=== PATIENT | male | born 1980 | race Hispanic/Latino ===

== ENCOUNTER → 2019-07-11 | Day surgery (SDC) | payer OTHER ==
--- NOTE | 2019-07-08 11:09 | RAD REPORT ---
EXAM DESCRIPTION: Rosaura Adamson (2 Views)07/08/2019 10:55 am CLINICAL HISTORY: Preop for mass removal from head COMPARISON: None FINDINGS: The lungs appear clear of acute infiltrate. The heart is normal size IMPRESSION: No acute abnormalities displayed
[~2019-07-11] MED LIST: CEFAZOLIN/SWI 1gm 1 GM/10 ML SYR ONE; FENTANYL CITR 100 MCG/2 ML ONE; HYDROCODONE/APAP 7.5/325 MG TAB ONE; KETOROLAC 30 MG/ML INJ ONE; LIDOCAINE 2% MPF 5 ML VIAL ONE; MIDAZOLAM HCL 2 MG/2 ML INJ ONE; ONDANSETRON 4 MG/2 ML VIAL ONE; Ringers Lactate 1,000 ML IV ONE; propofoL 200 MG/20 ML VIAL IV ONE
[2019-07-11 10:02] LABS: Basophils % 0.8 % (0-1.3); Hematocrit 50.2 % (39.6-49.0); Lymphocytes % 41.6 % (15.3-44.8); MPV 9.7 fL (7.6-11.3); RBC Red Blood Cell Count 5.75 M/uL (4.33-5.43)
[2019-07-11 12:27] VITALS: BP 138/65; TEMP 97.2; O2SAT 97
--- NOTE | 2019-07-11 15:36 | EKG ---
Test Date: 2019-07-08 Test Time: 10:31:20 Multimedia Teacher: DAWIT MEASUREMENT RESULTS: Intervals: Rate: 78 CO: 164 QRSD: 84 QT: 354 QTc: 403 [place]on: P: 47 CO: 164 QRS: -16 T: 44 INTERPRETIVE STATEMENTS: Normal sinus rhythm Normal ECG Compared to ECG 12/24/2004 09:51:00 Sinus bradycardia no longer present Electronically Signed On 07-11-19 15:35:09 SEED CORE OPERATOR by Angel Son
--- NOTE | 2019-07-12 00:28 | OP ---
Date of Procedure: 07/11/2019 Surgeon: Kristofer Contreras MD Preoperative Diagnosis: Tender forehead mass. Postoperative Diagnosis: Tender forehead mass. Procedure: Excisional biopsy of tender forehead mass. Anesthesia: General plus local. Findings: Patient has mass that goes calcified. This mass gets attached to the part of the bone. I t has some calcification attached to fibroid area. We have to get this right of bone on the fontal r egion. The specimen was sent for biopsy. Indications: This is the case of a 39-year-old patient, comes to us with a forehead mass. He denies any trauma. Denies any previously having this before. Comes to us and is getting tender. The bene fits, alternatives, and risks of excisional biopsy of forehead mass fully explained to the patient, w hich include, but are not limited to infection, bleeding, damage to adjacent structures, anesthesia c omplication, nonhealing wound, CO, and even . He also understands this may not relieve any symp toms, he might need more than one surgical intervention. He understood, signed a consent. The area of concern was marked by me and the patient in the holding room. Description Of Procedure: Patient was brought to the operating room, placed in supine position. Ane sthesia was done without complication. Forehead area was prepped and draped in a sterile fashion. A n incision was made over the area. Incision was carried down to deep subcutaneous tissue unless we n oticed a component of subcu and bone component. Both were marked together. In order for us to be ab le to get the bone component, we even had to have rongeur just to get that piece of calcification con nected to the subcutaneous tissue and sent that for biopsy. The mass was excised. The bone was also sent as a bone biopsy. Area was irrigated. No other masses palpated. Then, we closed the area wit h 3-0 chromic after irrigation and hemostasis and covered with a pressure sterile dressings. Patient tolerated the procedure well. Patient was sent t o recovery in stable condition. TOMMY/TRISTIN Voice ID: [id number] Report ID: [id number]
--- NOTE | 2019-07-12 00:43 | DS ---
Diagnosis: Forehead subcutaneous/bone mass. Postoperative Diagnosis: Forehead subcutaneous/bone mass. Procedure: Excisional biopsy of forehead mass. Disposition: Home. Activity: As tolerated. No heavy lifting. Followup: Follow up in my office in 1 week. Call for appointment [phone]. It is ideal if he keep the pressure dressing for the next until he see me back in my office, but if he has to remove it, the n he can remove that in 2 days and then replace it once again. Medications: Include hydrocodone q.4 hours p.r.n. pain. TOMMY/TRISTIN Voice ID: [id number] Report ID: [id number]
== END | disposition home or self-care (01) ==
LOC: OR 09:04
PROVIDERS: ATTEND Surgery
PROC: 0JB10ZZ Excision of Face Subcutaneous Tissue and Fascia, Open Approach (ICD-10-PCS; principal; 2019-07-11 11:00)
DX: R22.0 Localized swelling, mass and lump, head (principal)
CPT/HCPCS: 93005; 85025; 36415; 88305; 71046; 11442; J2704; J2250; J3010; J0690; J7120; J2405

== ENCOUNTER 2020-05-19 16:54 | Inpatient (IN) | payer OTHER ==
[2020-05-19] MEDS ORDERED: NA CHLORIDE 0.9% 1,000 ML ONE (17:43)
[2020-05-19] MEDS ORDERED: dexAMETHasone 4 MG/ML VIAL ONE (17:43)
[2020-05-19] MEDS ORDERED: NA CHLORIDE 0.9% 250 ML ONE (17:43)
[2020-05-19] MEDS ORDERED: AZITHROMYCIN 500 MG INJ IVPB ONE (17:43)
--- NOTE | 2020-05-19 18:11 | RAD REPORT ---
EXAM DESCRIPTION: Rosaura Single View05/19/2020 5:45 pm CLINICAL HISTORY: cough COMPARISON: 2019 FINDINGS: The lungs appear clear of acute infiltrate. The heart is normal size IMPRESSION: No acute abnormalities displayed
[2020-05-19 18:18] LABS: BUN Blood Urea Nitrogen 9 mg/dL (7-18); Bicarbonate 28 mmol/L (21-32); Glucose Level 101 mg/dL (74-106); Potassium 3.1 mmol/L (3.5-5.1); Sodium Level 136 mmol/L (136-145)
[2020-05-19 18:20] LABS: Absolute Lymphocytes (CBC) 1.2 K/uL (0.7-4.9); Basophils % 0.2 % (0-1.3); Hematocrit 43.3 % (39.6-49.0); Lymphocytes % 23.6 % (15.3-44.8); MPV 8.5 fL (7.6-11.3); RBC Red Blood Cell Count 5.07 M/uL (4.33-5.43)
[2020-05-19] MEDS ORDERED: KCL 20 MEQ/100 mL IVPB 20 MEQ/100 ML BAG IV ONE (18:40)
[2020-05-19] MEDS ORDERED: NS KCL 20MEQ 1,000 ML IV ONE (18:40)
--- NOTE | 2020-05-19 19:25 | RAD REPORT ---
EXAM DESCRIPTION: CT - Chest For Pe Angio - 05/19/2020 7:09 pm CLINICAL HISTORY: sob TECHNIQUE: Dynamically enhanced axial 3 mm thick images of the chest were obtained during administra tion of <100> mL Isovue 370 IV contrast. Coronal and oblique reconstruction images were generated and reviewed. Exam utilizes a protocol for optimal evaluation of pulmonary arterial tree. Maximum intensity projections 3D imaging was utilized All CT scans are performed using dose optimization technique as appropriate and may include automated exposure control or mA/KV adjustment according to patient size. FINDINGS: A pulmonary embolus is not seen. A thoracic aortic aneurysm is not noted. A pleural effusion is not seen. A pericardial effusion is not seen. Mild bilateral ground-glass opacities. Mild right lower lobe consolidation IMPRESSION: Negative for a pulmonary embolism. Mild bilateral ground-glass opacities with mild right lower lobe consolidation may indicate Covid pne umonia
--- NOTE | 2020-05-19 20:33 | ER ---
Nurse's Notes [facility] Name: Ivan Elliott Age: 40 yrs Sex: Male : 1980 Arrival Date: 05/19/2020 Time: 16:56 Bed 18 Private MD: Diagnosis: Coronavirus infection, unspecified;Hypoxia Presentation: 05/19 17:13 Chief complaint: Patient states: tested positive for COVID on Thursday at [facility], symptoms started 10 days ago, has not been eating, home Spo2 has been running 83-87 and he feels very weak and has chest congestion. Coronavirus screen: Client presents with at least one sign or symptom that may indicate coronavirus-19. Standard/surgical mask placed on the client. Provider contacted for isolation considerations. Client reports previous positive COVID test result. Date of collection: May 14, 2020. Ebola Screen: Patient negative for fever greater than or equal to 101.5 degrees Fahrenheit, and additional compatible Ebola Virus Disease symptoms Patient denies exposure to infectious person. Patient denies travel to an Ebola-affected area in the 21 days before illness onset. No symptoms or risks identified at this time. Initial Sepsis Screen: Does the patient meet any 2 criteria? No. Patient's initial sepsis screen is negative. Does the patient have a suspected source of infection? No. Patient's initial sepsis screen is negative. Risk Assessment: Do you want to hurt yourself or someone else? Patient reports no desire to harm self or others. Onset of symptoms was May 11, 2020. 17:13 Method Of Arrival: Wheelchair iw 17:13 Acuity: AJ 3 iw Historical: - Allergies: 17:16 No Known Allergies; iw - Home Meds: 17:16 Bromfed DM 2-30-10 mg/5 mL oral syrp 10 mL every 4 hours [Active]; Tessalon Perles 100 iw mg Oral cap 1 cap 3 times per day [Active]; - PMHx: 17:16 None; iw - PSHx: 17:16 left pectoralis repair; iw - Immunization history:: Adult Immunizations. - Social history:: Smoking status: Patient denies any tobacco usage or history of. Screenin:01 Abuse screen: Denies threats or abuse. Denies injuries from another. Nutritional hb screening: No deficits noted. Tuberculosis screening: No symptoms or risk factors identified. Fall Risk None identified. Assessment: 18:01 General: Appears in no apparent distress. ill, Behavior is calm, cooperative. Pain: hb Pain currently is 2 out of 10 on a pain scale. Neuro: Level of Consciousness is awake, alert, obeys commands, Oriented to person, place, time, situation. Cardiovascular: Capillary refill < 3 seconds Patient's skin is warm and dry. Respiratory: Reports shortness of breath at rest cough that is non-productive, Respiratory effort is even, unlabored, Respiratory pattern is regular, symmetrical. GI: No signs and/or symptoms were reported involving the gastrointestinal system. : No signs and/or symptoms were reported regarding the genitourinary system. EENT: No signs and/or symptoms were reported regarding the EENT system. Derm: Skin is pink, warm \T\ dry. Musculoskeletal: No signs and/or symptoms reported regarding the musculoskeletal system. 19:10 General: Appears in no apparent distress. Behavior is calm, cooperative, appropriate wh for age. Pain: Denies pain. Neuro: Level of Consciousness is awake, alert, obeys commands, Oriented to person, place, time, situation, Appropriate for age. Cardiovascular: Heart tones S1 S2. Respiratory: Airway is patent Respiratory effort is even, unlabored, Respiratory pattern is regular, symmetrical, Breath sounds are diminished. Respiratory: Reports shortness of breath at rest on exertion cough that is. GI: Abdomen is flat, non-distended. : No signs and/or symptoms were reported regarding the genitourinary system. EENT: No signs and/or symptoms were reported regarding the EENT system. Derm: Skin is intact, is healthy with good turgor, Skin is pink, warm \T\ dry. normal. Musculoskeletal: Circulation, motion, and sensation intact. 20:25 Reassessment: Patient appears in no apparent distress at this time. No changes from previously documented assessment. Patient and/or family updated on plan of care and expected duration. Pain level reassessed. Patient is alert, oriented x 3, equal unlabored respirations, skin warm/dry/pink. Pt was walked through the [address] with O2 sat monitor per Provider instruction. Pt O2 sats fell to as low as 83% while walking. Pt was brought back to bed and placed on supplemental O2. 21:45 Reassessment: Patient appears in no apparent distress at this time. Patient and/or wh family updated on plan of care and expected duration. Pain level reassessed. Patient is alert, oriented x 3, equal unlabored respirations, skin warm/dry/pink. Pt accessing his Covid result per [facility] chart notified charge nurse. 22:45 Reassessment: Patient appears in no apparent distress at this time. Patient and/or wh family updated on plan of care and expected duration. Pain level reassessed. Patient is alert, oriented x 3, equal unlabored respirations, skin warm/dry/pink. Pt was unable to procure Covid result, declining another Covid test, notified Charge Nurse and Data Security Coordinator told us he just needs to sign an affidavit informing that he is Covid Positive and that he understands he will be placed in the Covid unit. Vital Signs: 17:13 BP 108 / 83; Pulse 94; Resp 16; Temp 97.7; Pulse Ox 96% on R/A; Weight 102.06 kg; iw Height 5 ft. 10 in. (177.80 cm); 18:01 BP 111 / 74; Pulse 89; Resp 17; Pulse Ox 97% on 2 lpm NC; Pain 2/10; hb 19:15 BP 112 / 65; Pulse 89; Resp 18; Pulse Ox 94% on R/A; wh 20:29 BP 107 / 58; Pulse 91; Resp 18; Pulse Ox 93% on 2 lpm NC; wh 21:45 BP 106 / 78; Pulse 95; Resp 18; Pulse Ox 91% on R/A; wh 22:46 BP 112 / 67; Pulse 88; Resp 18; Pulse Ox 95% on 2 lpm NC; wh 17:13 Body Mass Index 32.28 (102.06 kg, 177.80 cm) iw ED Course: 16:56 Patient arrived in ED. ds1 17:15 Triage completed. iw 17:16 Arm band placed on. iw 17:19 Madonna Ellison FNP-C is PHCP. kb 17:19 Gatito Shelton MD is Attending Physician. kb 17:26 Sabine Huitron, JOSE is Primary Nurse. hb 17:46 Chest Single View XRAY In Process Unspecified. EDMS 17:48 Initial lab(s) drawn, by me, sent to lab. First set of blood cultures drawn by me. dh3 Inserted saline lock: 20 gauge in left antecubital area, using aseptic technique. Blood collected. 17:50 Second set of blood cultures drawn by in. [facility] 18:01 Patient has correct armband on for positive identification. Bed in low position. Call light in reach. Side rails up X 1. 18:50 PHCP role handed off by Madonna Ellison FNP-C [facility] 18:50 Nilo Ayon PA is PHCP. [facility] 19:09 CT Chest For PE Angio In Process Unspecified. EDMS 20:31 Enrique Meadows is Hospitalizing Provider. [facility] 23:11 No provider procedures requiring assistance completed. Patient admitted, IV remains in place. Administered Medications: 18:05 Drug: Decadron - Dexamethasone 10 mg Route: IVP; Site: right antecubital; hb 18:25 Follow up: Response: No adverse reaction hb 22:48 Follow up: Response: No adverse reaction 18:06 Drug: NS 0.9% 1000 ml Route: IV; Rate: 1000 ml; Site: right antecubital; hb 22:47 Follow up: Response: No adverse reaction; IV Status: Completed infusion 18:06 Drug: Zithromax 500 mg Route: IVPB; Infused Over: 1 hrs; Site: right antecubital; hb 22:47 Follow up: Response: No adverse reaction; IV Status: Completed infusion 18:43 Drug: NS 0.9% with KCl 40 mEq/L 1000 ml Route: IV; Rate: 125 ml/hr; Site: right hb antecubital; 22:47 Follow up: Response: No adverse reaction; IV Status: Infusion continued upon admission Outcome: 20:32 Decision to Hospitalize by Provider. [facility] 23:11 Admitted to ICU accompanied by nurse, family with patient, via wheelchair, room 3, with oxygen, with chart, Report called to Ansley Montes RN 23:11 Condition: stable 23:11 Instructed on the need for admit. 23:32 Patient left the ED. rv Signatures: Dispatcher [employer] EDMS Madonna Ellison FNP-C FNP-Ckb Mickail, Joel, PA PA [facility] Jada Camara ds1 Ana Meier RN RN Sabine Huitron RN RN Anita Arellano 3 Habalo, Wyatt Hamilton, RN RN rv
--- NOTE | 2020-05-19 20:33 | EDPHYS ---
Physician Documentation [facility] Name: Ivan Elliott Age: 40 yrs Sex: Male : 1980 Arrival Date: 05/19/2020 Time: 16:56 Bed 18 Private MD: ED Physician Gatito Shelton HPI: 05/19 17:54 This 40 yrs old Male presents to ER via Wheelchair with complaints of Covid + kb Shortness of Breath, Weakness. 17:54 The patient or guardian reports cough, that is intermittent, described as moderate, kb with no sputum, difficulty breathing, flu symptoms, low-grade fever, myalgias, no appetite. Onset: The symptoms/episode began/occurred 10 day(s) ago. Severity of symptoms: At their worst the symptoms were moderate, in the emergency department the symptoms are unchanged. Modifying factors: The symptoms are alleviated by nothing, the symptoms are aggravated by nothing. Associated signs and symptoms: Pertinent positives: fever, Pertinent negatives: chest pain, diarrhea, ear ache, nausea, rhinorrhea, sore throat, vomiting. The patient has not experienced similar symptoms in the past. The patient has been recently seen by a physician:. reports pt has been sick for 10 days. Tested positive for COVID on Thursday. Came in today because shortness of breath is getting worse, pt hasn't been eating for days, weakness and low O2 sats. States oxygen sat at home was 83-87% today which prompted a visit to ER. Historical: - Allergies: 17:16 No Known Allergies; iw - Home Meds: 17:16 Bromfed DM 2-30-10 mg/5 mL oral syrp 10 mL every 4 hours [Active]; Tessalon Perles 100 iw mg Oral cap 1 cap 3 times per day [Active]; - PMHx: 17:16 None; iw - PSHx: 17:16 left pectoralis repair; iw - Immunization history:: Adult Immunizations. - Social history:: Smoking status: Patient denies any tobacco usage or history of. ROS: 17:53 Cardiovascular: Negative for chest pain, palpitations, and edema, Abdomen/GI: Negative kb for abdominal pain, nausea, vomiting, diarrhea, and constipation, Back: Negative for injury and pain, MS/Extremity: Negative for injury and deformity, Skin: Negative for injury, rash, and discoloration. 17:53 Constitutional: Positive for body aches, chills, fatigue, fever, malaise, poor PO intake. 17:53 Respiratory: Positive for cough, dyspnea on exertion, shortness of breath, Negative for hemoptysis, orthopnea, pleurisy, wheezing. 17:53 Neuro: Positive for headache. Exam: 17:53 Constitutional: This is a well developed, well nourished patient who is awake, alert, kb and in no acute distress. Head/Face: Normocephalic, atraumatic. Chest/axilla: Normal chest wall appearance and motion. Nontender with no deformity. No lesions are appreciated. Cardiovascular: Regular rate and rhythm with a normal S1 and S2. No gallops, murmurs, or rubs. Normal PMI, no JVD. No pulse deficits. Abdomen/GI: Soft, non-tender, with normal bowel sounds. No distension or tympany. No guarding or rebound. No evidence of tenderness throughout. Skin: Warm, dry with normal turgor. Normal color with no rashes, no lesions, and no evidence of cellulitis. MS/ Extremity: Pulses equal, no cyanosis. Neurovascular intact. Full, normal range of motion. Neuro: Awake and alert, GCS 15, oriented to person, place, time, and situation. Cranial nerves II-XII grossly intact. Motor strength 5/5 in all extremities. Sensory grossly intact. Cerebellar exam normal. Normal gait. 17:53 Respiratory: the patient does not display signs of respiratory distress, Respirations: normal, Breath sounds: rhonchi, that are mild, are located in both bases. Vital Signs: 17:13 BP 108 / 83; Pulse 94; Resp 16; Temp 97.7; Pulse Ox 96% on R/A; Weight 102.06 kg; iw Height 5 ft. 10 in. (177.80 cm); 18:01 BP 111 / 74; Pulse 89; Resp 17; Pulse Ox 97% on 2 lpm NC; Pain 2/10; hb 19:15 BP 112 / 65; Pulse 89; Resp 18; Pulse Ox 94% on R/A; wh 20:29 BP 107 / 58; Pulse 91; Resp 18; Pulse Ox 93% on 2 lpm NC; wh 21:45 BP 106 / 78; Pulse 95; Resp 18; Pulse Ox 91% on R/A; wh 22:46 BP 112 / 67; Pulse 88; Resp 18; Pulse Ox 95% on 2 lpm NC; wh 17:13 Body Mass Index 32.28 (102.06 kg, 177.80 cm) iw MDM: 17:19 Patient medically screened. 17:40 Data reviewed: vital signs, nurses notes. Data interpreted: Pulse oximetry: on room air kb is 96 %. Interpretation: normal. 18:53 Transition of care: After a detail discussion of the patient's case, care is kb transferred to Nilo SCHMITT. 20:30 ED course: I discussed the patient with Dr. Meadows whom accepted admission. . [facility] 05/19 17:20 Order name: CBC with Diff; Complete Time: 18:22 05/19 17:20 Order name: Basic Metabolic Panel; Complete Time: 18:22 05/19 17:20 Order name: D-Dimer; Complete Time: 18:11 kb 05/19 17:26 Order name: Blood Culture Adult (2) 05/19 17:26 Order name: Lactate 05/19 17:26 Order name: Procalcitonin; Complete Time: 18:37 05/19 17:20 Order name: Chest Single View XRAY; Complete Time: 18:22 05/19 17:27 Order name: Blood Culture [facility] 05/19 17:27 Order name: Lactate; Complete Time: 18:22 [facility] 05/19 18:09 Order name: CT Chest For PE Angio; Complete Time: 19:27 05/19 20:28 Order name: CRP; Complete Time: 21:00 [facility] 05/19 17:20 Order name: IV Start; Complete Time: 17:57 kb 05/19 19:52 Order name: Misc. Order: walking o2; Complete Time: 20:23 [facility] 05/19 21:18 Order name: CONS Physician Consult EDOH Administered Medications: 18:05 Drug: Decadron - Dexamethasone 10 mg Route: IVP; Site: right antecubital; hb 18:25 Follow up: Response: No adverse reaction hb 22:48 Follow up: Response: No adverse reaction 18:06 Drug: NS 0.9% 1000 ml Route: IV; Rate: 1000 ml; Site: right antecubital; hb 22:47 Follow up: Response: No adverse reaction; IV Status: Completed infusion 18:06 Drug: Zithromax 500 mg Route: IVPB; Infused Over: 1 hrs; Site: right antecubital; hb 22:47 Follow up: Response: No adverse reaction; IV Status: Completed infusion 18:43 Drug: NS 0.9% with KCl 40 mEq/L 1000 ml Route: IV; Rate: 125 ml/hr; Site: right hb antecubital; 22:47 Follow up: Response: No adverse reaction; IV Status: Infusion continued upon admission Disposition: 05/19/20 20:32 Hospitalization ordered by Enrique Meadows for Observation. Preliminary diagnosis are Coronavirus infection, unspecified, Hypoxia. - Bed requested for Intensive Care Unit. - Status is Observation. rv - Condition is Stable. - Problem is new. - Symptoms are unchanged. Addendum: 05/21/2020 08:55 Co-signature as Attending Physician, Gatito Shelton MD I agree with the assessment and c roque plan of care. Signatures: Dispatcher [employer] EDMadonna Guerrero, ALFREDO-C FREEZING MACHINE OPERATOR-Ruthie Momin, RN Gatito Goldberg MD MD cha Mickail, Joel, PA PA Ana Cox RN RN Sabine Huitron RN Wyatt Chambers RN JOSE Danny Arnold Corrections: (The following items were deleted from the chart) 05/19 22:56 20:32 Hospitalization Ordered by Enrique Meadows for Observation. Preliminary diagnosis dw is Coronavirus infection, unspecified; Hypoxia. Bed requested for Telemetry/MedSurg (observation). Status is Observation. Condition is Stable. Problem is new. Symptoms are unchanged. [facility] 23:32 22:56 05/19/2020 20:32 Hospitalization Ordered by Enrique Meadows for Observation. rv Preliminary diagnosis is Coronavirus infection, unspecified; Hypoxia. Bed requested for Intensive Care Unit. Status is Observation. Condition is Stable. Problem is new. Symptoms are unchanged. dw
--- NOTE | 2020-05-19 22:21 | P.HP ---
Certification for Inpatient Patient admitted to: Observation With expected LOS: <2 Midnights Practitioner: I am a practitioner with admitting privileges, knowledge of patient current condition, hospital course, and medical plan of care. Services: Services provided to patient in accordance with Admission requirements found in Title 42 Section 412.3 of the Code of Federal Regulations Patient History Date of Service: 05/19/20 Reason for admission: Shortness of breath History of Present Illness: 40-year-old gentleman with no known past medical history presented emergency department with a complaint of progressive shortness of breath of 4 days duration. The patient tested positive for COVID 19 about 4 days ago. He also reports nonproductive cough. His D-dimer was elevated. CTA thorax done showed bilateral ground-glass opacity. Patient desaturates on room air with exertion. He is diagnosed with COVID pneumonia with hypoxia and placed under observation for further management. Allergies No Known Allergies Allergy (Verified 07/08/19 10:26) Home Medications: NK [No Home Meds] 07/08/19 - Past Medical/Surgical History -: None -: None - Family History Family History: Reviewed- Non-Contributory - Social History Smoking Status: Never smoker Alcohol use: No CD- Drugs: No Review of Systems Other: Patient denies any fever or chest pain. Except as documented, all other systems reviewed and negative. Physical Examination - Physical Exam General: Alert, In no apparent distress, Oriented x3 HEENT: Mucous membr. moist/pink, Sclerae nonicteric Neck: Supple, JVD not distended Respiratory: Clear to auscultation bilaterally, Normal air movement Cardiovascular: No edema, Regular rate/rhythm, Normal S1 S2 Gastrointestinal: Soft and benign, Non-distended, No tenderness Musculoskeletal: No swelling, No erythema Integumentary: No rashes, No cyanosis Neurological: Normal strength at 5/5 x4 extr, Cranial nerves 3-12 intact - Studies Laboratory Data (last 24 hrs) 05/19/20 17:48: Sodium 136, Potassium 3.1 L, BUN 9, Creatinine 0.89, Glucose 101 05/19/20 17:48: WBC 5.0, Hgb 15.3, Hct 43.3, Plt Count 195 Assessment and Plan - Problems (Diagnosis) (1) Pneumonia due to COVID-19 virus Current Visit: Yes Status: Acute (2) Acute respiratory failure with hypoxia Current Visit: Yes Status: Acute - Plan Place under observation. Start oral dexamethasone. Supplementation with zinc, vitamin-C and vitamin-D. Supplemental oxygen. Evaluate for home oxygen and possible discharge in a.m. if condition does not worsen. - Advance Directives Does patient have a Living Will: No Does patient have a Durable POA for Healthcare: No
[2020-05-20] MEDS ORDERED: ACETAMINOPHEN 500 MG TAB PO PRN (01:12)
[2020-05-20] MEDS ORDERED: ONDANSETRON 4 MG/2 ML VIAL IV PRN (01:12)
[2020-05-20 01:27] VITALS: BMI 31.2
[2020-05-20 06:13] LABS: Absolute Lymphocytes (CBC) 0.6 K/uL (0.7-4.9); Basophils % 0.2 % (0-1.3); Hematocrit 40.4 % (39.6-49.0); Lymphocytes % 24.2 % (15.3-44.8); MPV 8.5 fL (7.6-11.3); RBC Red Blood Cell Count 4.73 M/uL (4.33-5.43)
[2020-05-20 06:43] LABS: BUN Blood Urea Nitrogen 8 mg/dL (7-18); Bicarbonate 27 mmol/L (21-32); Glucose Level 153 mg/dL (74-106); Magnesium 2.6 mg/dL (1.8-2.4); Phosphorus 2.5 mg/dL (2.5-4.9); Potassium 3.7 mmol/L (3.5-5.1); Sodium Level 140 mmol/L (136-145)
[2020-05-20] MEDS ORDERED: [UNRECOGNIZED DRUG - OTHER] PO SCH (06:45)
[2020-05-20] MEDS: dexAMETHasone 4 MG TAB PO SCH ×2 (08:14→16:57)
[2020-05-20] MEDS: VITAMIN D 1000 UNIT TAB PO SCH (08:14)
[2020-05-20] MEDS: ZINC SULFATE 220 MG CAP PO SCH (08:14)
[2020-05-20] MEDS: BENZONATATE 100 MG CAP PO SCH ×3 (08:15→20:23)
[2020-05-20] MEDS: ASCORBIC ACID 500 MG TABLET PO SCH ×2 (08:15→20:23)
[2020-05-20] MEDS ORDERED: POTASSIUM CL SA 10 MEQ TAB PO ONE (09:00)
[2020-05-20] MEDS ORDERED: POTASS/SODIUM PHOSPHATE 1 PKT POWD.PACK PO ONE (09:00)
[2020-05-20] MEDS ORDERED: ENOXAPARIN 40 MG/0.4 ML SQ SCH (09:00)
[2020-05-20] MEDS ORDERED: INFLUENZA VACCINE (for 3y+) 0.5 ML DOSE IMVAC ONE (10:00)
--- NOTE | 2020-05-20 14:55 | P.PN ---
Subjective Date of Service: 05/20/20 Chief Complaint: Shortness of breath Subjective: No new changes (Patient's O2 saturation continues to drop. He will stay an additional day for home O2.) Physical Examination - Vital Signs Temperature: 96.4 F Blood Pressure: 132/82 Pulse: 94 Respirations: 22 Pulse Ox (%): 92 - Physical Exam General: Cooperative, Mild distress HEENT: Atraumatic, Normocephalic, EOMI Respiratory: Diminished, Crackles/rales Cardiovascular: No edema, Normal pulses, Regular rate/rhythm, Normal S1 S2 Gastrointestinal: Normal bowel sounds, Soft and benign, Non-distended, No tenderness Musculoskeletal: No clubbing, No swelling, No contractures, No erythema, No tenderness, No warmth Neurological: Normal speech, Sensation intact, Normal affect - Studies Laboratory Data (last 24 hrs) 05/19/20 17:48: Sodium 136, Potassium 3.1 L, BUN 9, Creatinine 0.89, Glucose 101 05/19/20 17:48: WBC 5.0, Hgb 15.3, Hct 43.3, Plt Count 195 Assessment & Plan - Problems (Diagnosis) (1) Acute respiratory failure with hypoxia Current Visit: Yes Status: Acute (2) Pneumonia due to COVID-19 virus Current Visit: Yes Status: Acute Physician Review Additional Text: Assessment Patient is a 40 year old male without chrnic co-morbidities currently admitted with acute hypoxia secondary to COVID 19 PNA. He is on dexamethasone, multi-vitamins and zinc supplements. His O2 saturation continues to drop. He will most likely need home O2. Acute hypoxia COVID 19 PNA PLAN: Change admission status from observation to inpatient Continue supplemental O2 via nasal cannula SW/CM consulted to arrange for home O2. Continue dexamethasone, vitamin B1, C, D and zinc Appreciate recommendations from Pulmonology
[2020-05-20] MEDS ORDERED: ASPIRIN 325 MG TAB PO ONE (20:04)
--- NOTE | 2020-05-20 20:04 | P.CNS ---
Date of Consult: 05/20/20 Reason for Consult: Pneumonia due to stiles virus Chief Complaint: Shortness of breath History of Present Illness: Patient is 40 years of age admitted with progressive dyspnea he was tested positive for stiles virus reports a nonproductive cough he has bilateral opacities Allergies No Known Allergies Allergy (Verified 05/20/20 01:29) Home Medications: Benzonatate [Tessalon Perle*] 100 mg PO TID 05/20/20 Brompheniramine/Pseudoephed/Dm [Riokztpg-Sxz-Au 2-30-10 mg/5Ml] 10 ml PO Q4H 05/20/20 - Past Medical/Surgical History Diabetic: No -: None -: left pectorial repair - Social History Alcohol use: No CD- Drugs: No Caffeine use: Yes Place of Residence: Home Physical Examination Temp Pulse Resp BP Pulse Ox 97.7 F 86 26 H 123/82 93 05/20/20 16:00 05/20/20 16:00 05/20/20 16:00 05/20/20 16:00 05/20/20 16:00 Laboratory Data (last 24 hrs) 05/20/20 05:23: Sodium 140, Potassium 3.7, BUN 8, Creatinine 0.79, Glucose 153 H, Phosphorus 2.5, Magnesium 2.6 H 05/20/20 05:23: WBC 2.5 L D, Hgb 14.6, Hct 40.4, Plt Count 215 - Problems (1) Pneumonia due to COVID-19 virus Current Visit: Yes Status: Acute Plan: Patient is 40 years of age admitted with pneumonia due to stiles virus vital signs oxygenation satisfactory is 91% on [address] scan reviewed is bilateral interstitial changes continue with Decadron assess room-air oxygenation setup for home O2 CRP is mildly elevated patient is currently stable possible discharge tomorrow on the prednisone 20 b.i.d. for a week and then 10 b.i.d. telephone visit with me in a week anticoagulation is currently doing much better CRP mildly elevated at 68
[2020-05-20] MEDS: APIXABAN 2.5 MG TABLET PO SCH (20:33)
[2020-05-21 04:35] VITALS: O2SAT 92
[2020-05-21 06:52] LABS: BUN Blood Urea Nitrogen 11 mg/dL (7-18); Bicarbonate 26 mmol/L (21-32); Glucose Level 140 mg/dL (74-106); Phosphorus 3.5 mg/dL (2.5-4.9); Potassium 3.5 mmol/L (3.5-5.1); Sodium Level 142 mmol/L (136-145)
[2020-05-21] MEDS: VITAMIN D 1000 UNIT TAB PO SCH (08:52)
[2020-05-21] MEDS: ZINC SULFATE 220 MG CAP PO SCH (08:53)
[2020-05-21] MEDS: BENZONATATE 100 MG CAP PO SCH (08:53)
[2020-05-21] MEDS: dexAMETHasone 4 MG TAB PO SCH (08:53)
[2020-05-21] MEDS: ASCORBIC ACID 500 MG TABLET PO SCH (08:53)
[2020-05-21] MEDS: APIXABAN 2.5 MG TABLET PO SCH (08:53)
[2020-05-21] MEDS ORDERED: POTASSIUM CL SA 10 MEQ TAB PO ONE (09:00)
--- NOTE | 2020-05-21 09:01 | P.DS ---
Admission Date: 05/20/20 Discharge Date: 05/21/20 Disposition: ROUTINE DISCHARGE Discharge Condition: FAIR Reason for Admission: Shortness of breath Consultations: Pulmonary consult-Dr. Ortiz. - Problems (1) Pneumonia due to COVID-19 virus Current Visit: Yes Status: Acute (2) Acute respiratory failure with hypoxia Current Visit: Yes Status: Acute Brief History of Present Illness: 40-year-old gentleman with no known past medical history presented emergency department with a complaint of progressive shortness of breath of 4 days duration. The patient tested positive for COVID 19 about 4 days ago. He also reports nonproductive cough. His D-dimer was elevated. CTA thorax done showed bilateral ground-glass opacity. Patient was desaturating on room air with exertion. He was diagnosed with COVID pneumonia with hypoxia and admitted for further management. Hospital Course: Patient admitted to the medical floor and treated with oral steroids, vitamin arwlqqvunhywibx-enqzhbu-W, D and zinc. He was also put on Eliquis for anticoagulation given elevated D-dimer. He was seen in consultation by Dr. Ortiz. Patient condition was stable throughout the hospital stay. His oxygen saturation was better on room air. He did not qualify for home oxygen. His SaO2 was 95% with exertion. Patient states he feels better today. He is deemed clinically stable for discharge. Vital Signs/Physical Exam: Temp Pulse Resp BP Pulse Ox 97.7 F 79 22 H 123/82 91 05/21/20 04:00 05/21/20 04:00 05/21/20 04:00 05/21/20 04:00 05/21/20 04:00 General: Alert, In no apparent distress HEENT: Mucous membr. moist/pink Respiratory: Normal air movement Cardiovascular: No edema Musculoskeletal: No swelling, No erythema Integumentary: No rashes Laboratory Data at Discharge: WBC 2.5 K/uL (4.3-10.9) L D 05/20/20 05:23 Hgb 14.6 g/dL (13.6-17.9) 05/20/20 05:23 Hct 40.4 % (39.6-49.0) 05/20/20 05:23 Plt Count 215 K/uL (152-406) 05/20/20 05:23 Sodium 142 mmol/L (136-145) 11/09/20 06:25 Potassium 3.5 mmol/L (3.5-5.1) 05/21/20 06:25 BUN 11 mg/dL (7-18) 05/21/20 06:25 Creatinine 0.74 mg/dL (0.55-1.3) 05/21/20 06:25 Glucose 140 mg/dL (74-106) H 05/21/20 06:25 Phosphorus 3.5 mg/dL (2.5-4.9) 05/21/20 06:25 Magnesium 2.6 mg/dL (1.8-2.4) H 05/20/20 05:23 Home Medications: Benzonatate [Tessalon Perle*] 100 mg PO TID 05/20/20 Brompheniramine/Pseudoephed/Dm [Ynafecns-Hjm-Mr 2-30-10 mg/5Ml] 10 ml PO Q4H 05/20/20 Apixaban [Eliquis *] 5 mg PO BID #28 tablet 05/21/20 Ascorbic Acid [Vitamin C*] 500 mg PO BID #60 tablet 05/21/20 Cholecalciferol (Vitamin D3) [Vitamin D 1000 Iu Tab*] 2,000 unit PO DAILY #30 tab 05/21/20 Zinc Sulfate [Zinc Sulfate*] 220 mg PO DAILY #30 cap 05/21/20 predniSONE [Deltasone*] 10 mg PO BID #42 tab 05/21/20 New Medications: predniSONE [Deltasone*] 10 mg PO BID #42 tab Apixaban [Eliquis *] 5 mg PO BID #28 tablet Ascorbic Acid [Vitamin C*] 500 mg PO BID #60 tablet Cholecalciferol (Vitamin D3) [Vitamin D 1000 Iu Tab*] 2,000 unit PO DAILY #30 tab Zinc Sulfate [Zinc Sulfate*] 220 mg PO DAILY #30 cap Diet: Regular Followup: [facility] [Primary Care Provider] - Time spent managing pt's care (in minutes): 37
[2020-05-21 10:54] VITALS: BP 107/68; TEMP 97.5
[2020-05-21] MEDS ORDERED: ENSURE HIGH PROTEIN 237 ML CAN PO SCH (21:00)
== END 2020-05-21 10:30 | disposition home or self-care (01) | DRG 177 ==
LOC: ER 16:54 → INTOOBSV 22:05 → ERHOLD 22:05 → OBSVTOIN 22:05 → 3RD-ICU 23:17 → OBSVTOIN 05-20 14:51
PROVIDERS: ADMIT Internal Medicine; ATTEND Internal Medicine
DX: U07.1 COVID-19 (principal); J12.89 Other viral pneumonia; J96.01 Acute respiratory failure with hypoxia; Z79.899 Other long term (current) drug therapy; Z79.01 Long term (current) use of anticoagulants; Z79.52 Long term (current) use of systemic steroids
CPT/HCPCS: 36415; 71045; 71275; 80048; 83605; 83735; 84100; 84145; 85025; 85379; 86140; 87040; 96365; 96366; 96375; 99285; G0378; J0456; J1100; J1650; J3480; J7030; J7050; J8540; Q9967